=== PATIENT | male | born 1960 | race African-American/Black ===

== ENCOUNTER 2017-03-19 05:02 | Emergency (ER) | payer MEDICAID ==
[~2017-03-19] VITALS: Ht 180.3 cm; Wt 116.0 kg
[2017-03-19] MEDS ORDERED: PREDNISONE 20MG TABLET PO STA (06:24)
[2017-03-19] MEDS ORDERED: ALBUTEROL (0.083%) 2.5MG/3ML NEB HHN STA (06:24)
[2017-03-19] MEDS ORDERED: IPRATROPIUM BROMIDE (0.02%) 0.5MG/2.5ML NEB HHN STA (06:24)
[2017-03-19] MEDS ORDERED: MUPIROCIN 2% CREAM 15GM TOP SCH (06:45)
[2017-03-19 08:17] VITALS: BP 156/99
== END 2017-03-19 08:30 | disposition home or self-care (01) ==
LOC: ER 05:06
DX: J20.9 Acute bronchitis, unspecified (principal); R06.2 Wheezing; I10 Essential (primary) hypertension; J45.909 Unspecified asthma, uncomplicated; F17.200 Nicotine dependence, unspecified, uncomplicated; F12.10 Cannabis abuse, uncomplicated; R06.02 Shortness of breath
CPT/HCPCS: 71010; 94640; 99283; J7512; J7611; Z7610

== ENCOUNTER 2018-08-31 05:20 | Emergency (ER) | payer MEDICAID ==
[~2018-08-31] VITALS: Ht 180.3 cm; Wt 114.0 kg
[~2018-08-31 05:20] MED LIST: ALBU18HF2 IH; FLUT1DIS3 IH; QUET100T PO; prednsione PO
[2018-08-31 07:23] LABS: BASOPHILS % 0.5 % (0.0-2.0); EOSINOPHILS % 1.4 % (0.0-5.0); HEMATOCRIT. 38.3 % (42.0-52.0); HEMOGLOBIN. 12.7 g/dL (14.0-18.0); LYMPHOCYTES % 26.5 % (20.0-50.0); MEAN CORPUSCULAR HEMOGLOBIN 30.8 pg (28.0-32.0); MEAN CORPUSCULAR VOLUME 92.8 fL (80.0-94.0); MONOCYTES % 9.5 % (2.0-8.0); NEUTROPHILS % 62.1 % (40.0-76.0); PLATELET 220 x1000/uL (130-400); RED BLOOD CELL COUNT 4.12 mill/uL (4.7-6.1)
[2018-08-31 07:31] LABS: CHLORIDE 107 mEq/L (98-107)
[2018-08-31 07:42] VITALS: BP 143/68
[2018-08-31] MEDS ORDERED: HYDROCHLOROTHIAZIDE 12.5MG CAPSULE PO ONE (07:45)
== END 2018-08-31 07:56 | disposition home or self-care (01) ==
LOC: ER 07:37
DX: I10 Essential (primary) hypertension (principal); R19.7 Diarrhea, unspecified
CPT/HCPCS: 36415; 99284

== ENCOUNTER 2018-10-03 10:01 | Emergency (ER) | payer MEDICAID ==
[~2018-10-03] VITALS: Ht 180.3 cm; Wt 112.0 kg
[2018-10-03 10:09] VITALS: BP 166/95
== END 2018-10-03 13:34 | disposition left against medical advice (07) ==
LOC: ER 10:01
DX: R05 Cough (principal); Z53.21 Procedure and treatment not carried out due to patient leaving prior to being seen by health care provider

== ENCOUNTER 2023-05-15 04:46 | Emergency (ER) | payer MEDICAID, OTHER ==
[~2023-05-15] VITALS: Ht 167.6 cm; Wt 105.0 kg
[2023-05-15 04:49] VITALS: O2SAT 95
[2023-05-15] MEDS ORDERED: HYDROCODONE/ACETAMINOPHEN 5/325MG TABLET PO ONE (05:45)
[2023-05-15 05:51] LABS: BASOPHILS % 0.2 % (0.0-2.0); EOSINOPHILS % 0.6 % (0.0-5.0); HEMATOCRIT. 33.9 % (42.0-52.0); HEMOGLOBIN. 11.2 g/dL (14.0-18.0); MEAN CORPUSCULAR HEMOGLOBIN 30.9 pg (28.0-32.0); MEAN CORPUSCULAR VOLUME 93.7 fL (80.0-94.0); MEAN PLATELET VOLUME 8.4 fl (7.4-10.4); MONOCYTES % 10.3 % (2.0-8.0); NEUTROPHILS % 76.9 % (40.0-76.0); PLATELET 227 x1000/uL (130-400); RED BLOOD CELL COUNT 3.62 mill/uL (4.7-6.1); RED CELL DISTRIBUTION WIDTH 13.3 % (11.6-14.6)
[2023-05-15 05:59] LABS: CHLORIDE 108 mEq/L (98-107)
[2023-05-15 06:11] LABS: ETHANOL BLOOD < 10 mg/dL (-10)
[2023-05-15 06:14] LABS: INR 1.1; PROTHROMBIN TIME 11.3 sec (9.6-11.0)
[2023-05-15] MEDS ORDERED: ASPIRIN 81MG TABLET PO ONE (08:15)
[2023-05-15] MEDS ORDERED: FUROSEMIDE 40MG/4ML VIAL IV ONE (08:15)
[2023-05-15 12:57] VITALS: BP 128/104; PULSE 63; RESP 16; TEMP 98.3
== END 2023-05-15 13:05 | disposition short-term general hospital (02) ==
LOC: ER 05:03 → CANBEDREQ 19:11
DX: R07.89 Other chest pain (principal); I11.0 Hypertensive heart disease with heart failure; I50.9 Heart failure, unspecified; E78.00 Pure hypercholesterolemia, unspecified; Z20.822 Contact with and (suspected) exposure to COVID-19
CPT/HCPCS: 80053; 80320; 83880; 85025; 85379; 85610; 84484; 36415; 71045; 73070; 93005; 96374; 99291; 87426; Z7610 ×4; J1940; C9803; G0480

== ENCOUNTER 2023-10-08 07:36 | Emergency (ER) | payer MEDICAID, OTHER ==
[~2023-10-08] VITALS: Ht 177.8 cm; Wt 111.0 kg
[2023-10-08 08:11] VITALS: O2SAT 98
[2023-10-08 08:38] LABS: BASOPHILS % 0.2 % (0.0-2.0); EOSINOPHILS % 1.2 % (0.0-5.0); HEMATOCRIT. 35.4 % (42.0-52.0); HEMOGLOBIN. 11.8 g/dL (14.0-18.0); LYMPHOCYTES % 19.2 % (20.0-50.0); MEAN CORPUSCULAR HEMOGLOBIN 31.1 pg (28.0-32.0); MEAN CORPUSCULAR HGB CONC 33.3 g/dL (31.0-37.0); MEAN CORPUSCULAR VOLUME 93.5 fL (80.0-94.0); MEAN PLATELET VOLUME 9.4 fl (7.4-10.4); NEUTROPHILS % 73.4 % (40.0-76.0); PLATELET 207 x1000/uL (130-400); RED BLOOD CELL COUNT 3.79 mill/uL (4.7-6.1); RED CELL DISTRIBUTION WIDTH 12.8 % (11.6-14.6); WHITE BLOOD COUNT 10.4 x1000/uL (4.5-11.0)
[2023-10-08 08:47] LABS: ALANINE AMINOTRANSFERASE 22 IU/L (10-49); ALBUMIN 3.9 g/dL (3.2-4.8); ASPARTATE AMINOTRANSFERASE 20 IU/L (<34); BILIRUBIN TOTAL 0.4 mg/dL (0.1-1.0); CARBON DIOXIDE 26 mEq/L (21-32); CHLORIDE 105 mEq/L (98-107); CREATININE 1.3 mg/dL (0.6-1.3); GLUCOSE 182 mg/dL (70-105); POTASSIUM 4.1 mEq/L (3.5-5.1); PROTEIN TOTAL 7.2 g/dL (6.0-8.3); SODIUM 139 mEq/L (136-145); UREA NITROGEN BLOOD 23 mg/dL (9-23)
[2023-10-08] MEDS ORDERED: ALBUTEROL (0.083%) 2.5MG/3ML NEB HHN STA (11:09)
[2023-10-08] MEDS ORDERED: IPRATROPIUM BROMIDE (0.02%) 0.5MG/2.5ML NEB HHN STA (11:09)
[2023-10-08 11:13] LABS: CLARITY URINE CLEAR (CLEAR); COLOR URINE YELLOW (YELLOW); GLUCOSE URINE NEGATIVE (NEGATIVE); KETONES URINE NEGATIVE (NEGATIVE); LEUKOCYTE ESTERASE URINE NEGATIVE (NEGATIVE); NITRITE URINE NEGATIVE (NEGATIVE); OCCULT BLOOD URINE NEGATIVE (NEGATIVE); PH URINE 5.5 (4.5-8.0); PROTEIN URINE NEGATIVE (NEGATIVE); SPECIFIC GRAVITY URINE 1.025 (1.005-1.030); UROBILINOGEN URINE 0.2 E.U./dL (0.2-1.0)
[2023-10-08] MEDS ORDERED: ALBU18HF2 IH (11:16)
[2023-10-08] MEDS ORDERED: AZIT250T12 PO (11:16)
[2023-10-08] MEDS ORDERED: FLUT1DIS3 INH (11:16)
[2023-10-08] MEDS ORDERED: P50 MT (11:16)
[2023-10-08 11:30] VITALS: PULSE 96; RESP 22
[2023-10-08 12:24] VITALS: BP 137/57; PULSE 96; RESP 18; TEMP 98.4
== END 2023-10-08 12:27 | disposition home or self-care (01) ==
LOC: ER 07:36
DX: J44.1 Chronic obstructive pulmonary disease with (acute) exacerbation (principal); I11.0 Hypertensive heart disease with heart failure; I50.9 Heart failure, unspecified
CPT/HCPCS: 80053; 81003; 83880; 83605; 85025; 36415; 71045; 94640; 93005; 99285; Z7610 ×3